=== PATIENT | male | born 1975 | race African-American/Black ===

== ENCOUNTER 2018-02-05 13:14 | Emergency (ER) | payer OTHER ==
[~2018-02-05] VITALS: Ht 177.8 cm; Wt 102.1 kg
[2018-02-05 13:15] VITALS: BP 157/117
[2018-02-05] MEDS ORDERED: BACTRIM DS TAB1 EACH PO (14:00)
== END 2018-02-05 14:14 | disposition home or self-care (01) ==
LOC: ER 13:14
DX: K12.2 Cellulitis and abscess of mouth (principal); F17.210 Nicotine dependence, cigarettes, uncomplicated

== ENCOUNTER 2020-06-27 00:32 | Emergency (ER) | payer BC, OTHER ==
[~2020-06-27] VITALS: Ht 180.3 cm; Wt 106.6 kg
[~2020-06-27 00:32] MED LIST: BACTRIM DS TAB1 EACH PO
[2020-06-27 01:06] LABS: ABSOLUTE NEUTROPHILS 5.9 thou/uL (1.4-8.2); BASOPHILS 1.2 % (0.0-2.0); EOSINOPHILS 6.7 % (0.0-3.0); HEMATOCRIT 41.9 % (42.0-52.0); HEMOGLOBIN 14.2 gm/dL (14.0-18.0); LYMPHOCYTES 26.5 % (24.0-44.0); MCH 32.8 pg (26.0-34.0); MCHC 33.8 g/dL (28.0-37.0); MONOCYTES 9.9 % (1.0-8.0); PLATELET COUNT 240 thou/uL (150-400); POLYS 55.7 % (36.0-66.0); RBC 4.32 mil/uL (4.50-6.00); RDW 13.6 % (10.5-14.5); WBC 10.6 thou/uL (4.0-11.0)
[2020-06-27 01:07] LABS: URINE BILIRUBIN NEGATIVE (Negative); URINE BLOOD NEGATIVE (Negative); URINE CLARITY CLEAR; URINE COLOR YELLOW; URINE GLUCOSE-RANDOM* NEGATIVE (Negative); URINE KETONES NEGATIVE (Negative); URINE NITRITE-REFLEX NEGATIVE (Negative); URINE PROTEIN (DIPSTICK) NEGATIVE (Negative); URINE UROBILINOGEN 0.2 E.U./dl (0.2-1.0)
[2020-06-27 01:08] LABS: URINE LEUKOCYTES-REFLEX 1+ (Negative)
[2020-06-27 01:13] LABS: CALCIUM 8.6 mg/dL (8.5-10.1); CREATININE 1.3 mg/dL (0.7-1.3); POTASSIUM 3.9 mmol/L (3.5-5.1)
[2020-06-27 01:19] LABS: ALBUMIN 3.4 g/dL (3.4-5.0); TOTAL BILIRUBIN 0.3 mg/dL (0.2-1.0); TOTAL PROTEIN 6.8 g/dL (6.4-8.2)
[2020-06-27 01:33] LABS: BACTERIA-REFLEX 1-9 Few /HPF (None Seen); CASTS None Seen /LPF (None Seen); CRYSTALS None Seen /LPF (None Seen); MUCUS 0-3 Light strn/LPF (None Seen); SQUAMOUS 4-10 Moderate /LPF (0-3); URINE RBC 3-10 Few /HPF (0-2); URINE WBC-REFLEX 6-15 Few /HPF (0-5)
[2020-06-27] MEDS ORDERED: ZOFRAN ODT4 MG PO ×2 (03:23)
[2020-06-27] MEDS ORDERED: LEVSIN0.125 MG PO ×2 (03:23)
[2020-06-27 03:52] VITALS: BP 162/104
== END 2020-06-27 03:53 | disposition home or self-care (01) ==
LOC: ER 00:32
PROVIDERS: Emergency Medicine
DX: N39.0 Urinary tract infection, site not specified (principal); I10 Essential (primary) hypertension; J45.909 Unspecified asthma, uncomplicated; F17.210 Nicotine dependence, cigarettes, uncomplicated; Z91.013 Allergy to seafood

== ENCOUNTER 2020-06-28 16:21 | Emergency (ER) | payer BC, OTHER ==
[~2020-06-28] VITALS: Ht 180.3 cm; Wt 106.6 kg
[~2020-06-28 16:21] MED LIST changes: +LEVSIN0.125 MG PO; +ZOFRAN ODT4 MG PO
[2020-06-28 18:21] LABS: HEMATOCRIT 44.4 % (42.0-52.0); HEMOGLOBIN 14.6 gm/dL (14.0-18.0); MCH 31.8 pg (26.0-34.0); MCHC 32.9 g/dL (28.0-37.0); MCV 96.6 fL (80.0-100.0); RBC 4.59 mil/uL (4.50-6.00); RDW 13.8 % (10.5-14.5); WBC 11.5 thou/uL (4.0-11.0)
[2020-06-28 19:07] VITALS: BP 148/92
== END 2020-06-28 19:10 | disposition home or self-care (01) ==
LOC: ER 16:21
PROVIDERS: Physician Assistant
DX: S40.022A Contusion of left upper arm, initial encounter (principal); I10 Essential (primary) hypertension; J45.909 Unspecified asthma, uncomplicated; F17.210 Nicotine dependence, cigarettes, uncomplicated; Z91.013 Allergy to seafood; X58.XXXA Exposure to other specified factors, initial encounter; Y93.89 Activity, other specified; Y92.89 Other specified places as the place of occurrence of the external cause; Y99.8 Other external cause status

== ENCOUNTER 2021-01-11 17:51 | Emergency (ER) | payer OTHER ==
[~2021-01-11] VITALS: Ht 177.8 cm; Wt 104.3 kg
[2021-01-11] MEDS ORDERED: AMLODIPINE BESY10 MG PO (17:59)
[2021-01-11] MEDS ORDERED: VITAMIN D325 MC3 PO (18:00)
[2021-01-11] MEDS ORDERED: WELLBUTRIN SR150 MG PO (18:00)
[2021-01-11 18:34] LABS: ABSOLUTE NEUTROPHILS 4.1 thou/uL (1.4-8.2); BASOPHILS 0.8 % (0.0-2.0); EOSINOPHILS 0.5 % (0.0-3.0); HEMATOCRIT 47.4 % (42.0-52.0); HEMOGLOBIN 16.4 gm/dL (14.0-18.0); LYMPHOCYTES 17.8 % (24.0-44.0); MCH 32.4 pg (26.0-34.0); MCHC 34.6 g/dL (28.0-37.0); MCV 93.7 fL (80.0-100.0); MONOCYTES 13.7 % (1.0-8.0); PLATELET COUNT 210 thou/uL (150-400); POLYS 67.2 % (36.0-66.0); RBC 5.06 mil/uL (4.50-6.00); RDW 13.8 % (10.5-14.5); WBC 6.1 thou/uL (4.0-11.0)
[2021-01-11 18:48] LABS: CALCIUM 8.8 mg/dL (8.5-10.1); CREATININE 1.3 mg/dL (0.7-1.3); POTASSIUM 4.3 mmol/L (3.5-5.1)
[2021-01-11 18:53] LABS: ALBUMIN 3.5 g/dL (3.4-5.0); MAGNESIUM 2.2 mg/dL (1.8-2.4); TOTAL PROTEIN 7.9 g/dL (6.4-8.2)
[2021-01-11 19:16] LABS: TOTAL BILIRUBIN 0.4 mg/dL (0.2-1.0)
[2021-01-11 21:46] VITALS: BP 130/95
--- NOTE | 2021-01-12 07:10 | EKG ---
[place] [address] [facility] 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
== END 2021-01-11 21:52 | disposition home or self-care (01) ==
LOC: ER 17:51
PROVIDERS: Nurse Practitioner Family
DX: U07.1 COVID-19 (principal); R11.10 Vomiting, unspecified; I10 Essential (primary) hypertension; J45.909 Unspecified asthma, uncomplicated; F17.210 Nicotine dependence, cigarettes, uncomplicated; F12.90 Cannabis use, unspecified, uncomplicated; Z91.09 Other allergy status, other than to drugs and biological substances; Z79.891 Long term (current) use of opiate analgesic; Z79.899 Other long term (current) drug therapy; Z91.013 Allergy to seafood